=== PATIENT | female | born 1960 | race Caucasian/White ===

== ENCOUNTER → 2020-08-07 10:01 | Outpatient (CLI) | payer BC, OTHER, SELFPAY ==
--- NOTE | ~2020-08-07 | DEXA_ITS ---
Bone Density Report Name: Ebony Bynum Age: 59 Sex: Female Ethnicity: White Date of : 1960 Indication: postmenopausal; screening for osteoporosis; parental hip fracture; prior fracture; Referring Provider: LIBERTY MARIE Study: Bone densitometry was performed. Exam Date: August 07, 2020 Accession number: [id number] Bone Density: Region BMD T-score Z-score Classification AP Spine (L1-L4) 1.019 -0.3 1.3 Normal Femoral Neck (Left) 0.770 -0.7 0.7 Normal Total Hip (Left) 0.775 -1.4 -0.3 Osteopenia Femoral Neck (Right) 0.764 -0.8 0.6 Normal Total Hip (Right) 0.810 -1.1 0.0 Osteopenia Total Hip Mean 0.793 -1.3 -0.2 Osteopenia World Health Organization criteria for BMD impression classify patients as: Normal (T-score at or above -1.0), Osteopenia (T-score between -1.0 and -2.5), or Osteoporosis (T-score at or below -2.5). 10-year Fracture Risk(1): Major Osteoporotic Fracture 23% Hip Fracture 0.7% Reported Risk Factors: [place] (), Neck BMD=0.764, BMI=23.6, previous fracture, parental fracture (1) FRAX(R) Version 3.08. Fracture probability calculated for an untreated patient. Fracture probability may be lower if the patient has received treatment. Previous Exams: Region Exam Age BMD T-score BMD Change BMD Change Date g/cm2 vs Baseline vs Previous AP Spine(L1-L4) 08/07/2020 59 1.019 -0.3 -0.064* -0.028* 06/07/2014 53 1.046 0.0 -0.037* -0.037* 09/24/2011 50 1.083 0.3 Total Hip(Left) 08/07/2020 59 0.775 -1.4 -0.118* -0.062* 02/12/2018 57 0.837 -0.9 -0.056* -0.024 06/07/2014 53 0.861 -0.7 -0.032* -0.032* 09/24/2011 50 0.893 -0.4 Total Hip(Right) 08/07/2020 59 0.810 -1.1 -0.076* -0.056* 02/12/2018 57 0.866 -0.6 -0.020 0.013 06/07/2014 53 0.853 -0.7 -0.033* -0.033* 09/24/2011 50 0.887 -0.5 *Denotes significance at 95% confidence level, LSC for AP Spine = 0.022 g/cm2, LSC for Total Hip = 0.027 g/cm2 Clinical Information Provided by Patient: Has had a low trauma fracture Parent has had a hip fracture Has used the following medications: Vitamin D Patient maximum height was 67.5 Menopause Age: 49 Drinks caffeinated beverages Onset of menses at age 13 Number of children 2 Impression: The patient has low bone mass, based on the Left Total
--- NOTE | ~2020-08-07 | MM_ITS ---
EXAMINATION: MM screening wilberto BI w dinora HISTORY: Screening mammogram, family history of breast cancer in her sister. TECHNIQUE: Craniocaudal and mediolateral oblique 3-D tomosynthesis images were obtained and synthetic 2-D images were generated. CAD analysis was submitted and interpreted. COMPARISON: 06/29/2018, 06/09/2017, 02/26/2016 BREAST PARENCHYMAL COMPOSITION: The breasts are heterogeneously dense, which may obscure small masses . FINDINGS: There is no evidence of suspicious mass, calcification, or architectural distortion to sugg est malignancy in either breast. There has been no suspicious interval change. IMPRESSION: 1. No mammographic evidence of malignancy. 2. Recommend routine screening mammography in one year. BI-RADS Category 1: Negative Reviewed, dictated and finalized at location A.
== END ==
PROVIDERS: PCP Family Medicine; Visit Provider Family Medicine
DX: Z12.31 Encounter for screening mammogram for malignant neoplasm of breast (principal); Z13.820 Encounter for screening for osteoporosis; M85.852 Other specified disorders of bone density and structure, left thigh; M85.851 Other specified disorders of bone density and structure, right thigh
CPT/HCPCS: 77063; 77067; 77080

== ENCOUNTER → 2021-08-27 12:10 | Outpatient (CLI) | payer BC, OTHER, SELFPAY ==
--- NOTE | ~2021-08-27 | MM_ITS ---
EXAMINATION: MM screening wilberto BI w dinora HISTORY: Screening mammogram TECHNIQUE: Craniocaudal and mediolateral oblique 3-D tomosynthesis images were obtained and synthetic 2-D images were generated. Bilateral rotated lateral CC views. CAD analysis was submitted and interp reted. COMPARISON: 08/07/2020, 06/29/2018, 06/09/2017 bilateral screening mammogram examinations BREAST PARENCHYMAL COMPOSITION: The breasts are heterogeneously dense, which may obscure small masses . FINDINGS: There is no evidence of suspicious mass, calcification, or architectural distortion to sugg est malignancy in either breast. There has been no suspicious interval change. IMPRESSION: 1. No mammographic evidence of malignancy. 2. Recommend routine screening mammography in one year. BI-RADS Category 1: Negative gas is seen lump behind the nipple there is obvious epiglottic right she ath is obtained with Reviewed, dictated and finalized at location A. IMPRESSION: 1. No mammographic evidence of malignancy. 2. Recommend routine screening mammography in one year. BI-RADS Category 1: Negative gas is seen lump behind the nipple there is obviou s epiglottic right sheath is obtained with
== END ==
PROVIDERS: PCP Family Medicine; Visit Provider Family Medicine
DX: Z12.31 Encounter for screening mammogram for malignant neoplasm of breast (principal)
CPT/HCPCS: 77063; 77067

== ENCOUNTER 2022-07-15 00:18 | Day surgery (SDC) | payer BC, OTHER, SELFPAY ==
[2022-07-01 14:26] VITALS: BMI 23.6
[2022-07-15 11:00] VITALS: BP 103/57; PULSE 82; RESP 16; TEMP 36.1; O2SAT 98; BMI 23.2
--- NOTE | 2022-07-15 11:23 | PM.HPGS ---
History of Present Illness History of Present Illness Consent: Risks, benefits, and alternatives have been discussed and questions answered. Patient agrees to proceed with procedure. Chief complaint: neoplasm screening Narrative: Ebony Bynum is a 61 year old female Presents for screening colonoscopy. Patient's current weight appetite and bowel movements are normal. Patient denies abdominal pain. She has had no bleeding. Family history is noncontributory. Patient has previous colonoscopy 10 years ago was unremarkable. Review of Systems Review of Systems: Review of systems noncontributory. [facility] Past Medical History Medical History Broken wrist (~02/28/20) Cellulitis of fourth toe of right foot Chronic pain of left ankle Pain in right knee Pelvis fracture (~2007) Sprain of left ankle Surgical History Surgical History S/P knee surgery [place] teeth removed Family History Family History Father History of blood clots Grandparent Breast cancer Mother Hypertension Cerebrovascular accident Sibling Breast cancer Social History Social History Smoking status: Never smoker Alcohol intake: current Alcohol use details: occasional wine Substance use: never Substance use type: does not use Lack of Transportation: No Lack of Food: Never True Current Housing: I Have Housing Concerned About Future Housing: No Difficulty Paying Gas/Electric Bills: No Difficulty Paying for Meds: No Currently Unemployed: No Education: High School Diploma/GED Difficulty w/ Childcare or Family Care: No Living arrangements: with family Spiritual care concerns: No Meds Home Medications and Allergies Home Medications Medication Instructions Recorded Confirmed Type omega-3 fatty acids-fish oil 340 1 cap PO DAILY 08/06/21 07/15/22 History mg-1,000 mg capsule (Fish Oil) cholecalciferol (vitamin D3) 50 50 mcg PO DAILY 07/01/22 07/15/22 History mcg (2,000 unit) tablet (Vitamin D3) Allergies Allergy/AdvReac Type Severity Reaction Status Date / Time No Known Allergies Allergy Verified 07/15/22 11:09 Vital Signs Vital Signs - 24 hr 04/18/23 11:00 Temperature 96.9 F L Pulse Rate 82 Respiratory Rate 16 Blood Pressure 103/57 L Pulse Oximetry 98 Oxygen Delivery Room Air Exam Narrative: Physical exam reveals patient to be alert. Vital signs stable. HEENT exam is unremarkable. Patient is anicteric. Lungs are clear to auscultation and percussion. Heart is without murmur or extra sounds. Abdomen bowel sounds are present soft nontender with no organomegaly. Digital external rectal exam is normal. Assessment and Plan Assessment and plan (1) Encounter for screening colonoscopy: Code(s): Z12.11 - Encounter for screening for malignant neoplasm of colon Status: Acute Assessment and Plan: Patient presents today for screening colonoscopy. She appears to be at average risk for colon polyps. Further recommendations may be given after endoscopy.
[2022-07-15] MEDS: LACTATED RINGERS 1,000 ML 150 ML IV CONT (11:29)
--- NOTE | 2022-07-15 11:30 | P.PNAN_ITS ---
Anes - Initial Pre Proc Eval Procedure: Operation Date: 07/15/22 12:30 Proposed Procedures p Screening Colonoscopy - Chandler Farah MD Date/Time: 07/15/22 11:30 Surgeon: Chandler Farah MD Pre Op Diagnosis: neoplasm screening Patient Data Age: 61 Gender: F Height: 1.7 m Weight: 67.2 kg Last Vital Signs Temp 36.1 C L 07/15/22 11:00 Pulse 82 07/15/22 11:00 Resp 16 07/15/22 11:00 BP 103/57 L 07/15/22 11:00 Pulse Ox 98 07/15/22 11:00 O2 Del Method Room Air 07/15/22 11:00 Allergies Allergy/AdvReac Type Severity Reaction Status Date / Time No Known Allergies Allergy Verified 07/15/22 11:09 Home Medications Medication Instructions Recorded Confirmed Type omega-3 fatty acids-fish oil 340 1 cap PO DAILY 08/06/21 07/15/22 History mg-1,000 mg capsule (Fish Oil) cholecalciferol (vitamin D3) 50 50 mcg PO DAILY 07/01/22 07/15/22 History mcg (2,000 unit) tablet (Vitamin D3) Patient hx anesthesia problems: none Family hx anesthesia problems: none Results Review: All pre-operative results and documents have been reviewed as part of the pre- operative evaluation. [facility] Past Medical History Medical History Broken wrist (~02/28/20) Cellulitis of fourth toe of right foot Chronic pain of left ankle Pain in right knee Pelvis fracture (~2007) Sprain of left ankle Surgical History Surgical History S/P knee surgery [place] teeth removed Family History Family History Father History of blood clots Grandparent Breast cancer Mother Hypertension Cerebrovascular accident Sibling Breast cancer Social History Social History Smoking status: Never smoker Alcohol intake: current Alcohol use details: occasional wine Substance use: never Substance use type: does not use Lack of Transportation: No Lack of Food: Never True Current Housing: I Have Housing Concerned About Future Housing: No Difficulty Paying Gas/Electric Bills: No Difficulty Paying for Meds: No Currently Unemployed: No Education: High School Diploma/GED Difficulty w/ Childcare or Family Care: No Living arrangements: with family Spiritual care concerns: No Anes - Eval Final PreProcedure Day of Procedure 07/15/22 11:30 Patient weight: normal Heart: regular rate and rhythm Lungs: clear to auscultation and normal air movement Airway: Mallampati scale class II Neurological: alert and oriented Last oral intake: >/= 8 hours ASA classification: II Emergent: no Anesthetic plan: proceed Anesthesia type and monitoring: general GIVS and standard monitoring Results Review: All pre-operative results and documents have been reviewed as part of the pre- operative evaluation. Informed Consent: The patient's anesthetic plan and its attendant risks and benefits were discussed with the patient/family/POA. Questions were solicited and answers provided to the satisfaction of the patient/family/POA.
[2022-07-15 12:30] VITALS: BP 88/61; PULSE 78; RESP 14; O2SAT 98
[2022-07-15 12:39] VITALS: BP 87/57; PULSE 74; RESP 16; O2SAT 98
[2022-07-15 12:49] VITALS: BP 114/71; PULSE 71; RESP 18; O2SAT 98
== END 2022-07-15 12:58 | disposition home or self-care (01) ==
PROVIDERS: PCP Family Medicine; Visit Provider Internal Medicine Gastroenterology
PROC: 0DJD8ZZ Inspection of Lower Intestinal Tract, Via Natural or Artificial Opening Endoscopic (ICD-10-PCS; CPT 45378; principal; 2022-07-15 12:30)
DX: Z12.11 Encounter for screening for malignant neoplasm of colon (principal); K64.8 Other hemorrhoids
CPT/HCPCS: 45378; J2704; J7120

== ENCOUNTER → 2022-09-08 11:50 | Outpatient (CLI) | payer BC, OTHER, SELFPAY ==
--- NOTE | ~2022-09-08 | DEXA_ITS ---
Bone Density Report Name: FLIP AGUILAR Age: 61 Sex: Female Ethnicity: White Date of : 1960 Indication: osteopenia; parental hip fracture; prior fracture; postmenopausal Referring Provider: LIBERTY MARIE Study: Bone densitometry was performed. Exam Date: September 08, 2022 Accession number: [id number] Bone Density: Region BMD T-score Z-score Classification AP Spine (L1-L4) 1.005 -0.4 1.3 Normal Femoral Neck (Left) 0.738 -1.0 0.5 Normal Total Hip (Left) 0.763 -1.5 -0.3 Osteopenia Femoral Neck (Right) 0.754 -0.9 0.6 Normal Total Hip (Right) 0.821 -1.0 0.2 Normal Total Hip Mean 0.792 -1.3 -0.1 Osteopenia World Health Organization criteria for BMD impression classify patients as: Normal (T-score at or above -1.0), Osteopenia (T-score between -1.0 and -2.5), or Osteoporosis (T-score at or below -2.5). 10-year Fracture Risk(1): Major Osteoporotic Fracture 24% Hip Fracture 0.9% Reported Risk Factors: [place] (), Neck BMD=0.738, BMI=23.4, previous fracture, parental fracture (1) FRAX(R) Version 3.08. Fracture probability calculated for an untreated patient. Fracture probability may be lower if the patient has received treatment. Previous Exams: Region Exam Age BMD T-score BMD Change BMD Change Date g/cm2 vs Baseline vs Previous AP Spine(L1-L4) 09/08/2022 61 1.005 -0.4 -0.078* -0.014 08/07/2020 59 1.019 -0.3 -0.064* -0.028* 06/07/2014 53 1.046 0.0 -0.037* -0.037* 09/24/2011 50 1.083 0.3 Total Hip(Left) 09/08/2022 61 0.763 -1.5 -0.130* -0.011 08/07/2020 59 0.775 -1.4 -0.118* -0.062* 02/12/2018 57 0.837 -0.9 -0.056* -0.024 06/07/2014 53 0.861 -0.7 -0.032* -0.032* 09/24/2011 50 0.893 -0.4 Total Hip(Right) 09/08/2022 61 0.821 -1.0 -0.066* 0.011 08/07/2020 59 0.810 -1.1 -0.076* -0.056* 02/12/2018 57 0.866 -0.6 -0.020 0.013 06/07/2014 53 0.853 -0.7 -0.033* -0.033* 09/24/2011 50 0.887 -0.5 *Denotes significance at 95% confidence level, LSC for AP Spine = 0.022 g/cm2, LSC for Total Hip = 0.027 g/cm2 Clinical Information Provided by Patient: Has had a low trauma fracture Parent has had a hip fracture Has used the following medications: Vitamin D Patient maximum height was 67.5 Menopause Age: 49 Drinks caffeinated beverages Onset of menses at
--- NOTE | ~2022-09-08 | MM_ITS ---
EXAMINATION: MM screening wilberto BI w dinora HISTORY: Screening mammogram TECHNIQUE: Craniocaudal and mediolateral oblique 3-D tomosynthesis images were obtained and synthetic 2-D images were generated. CAD analysis was submitted and interpreted. COMPARISON: 08/27/2021, 08/07/2020, 06/29/2018 bilateral screening mammogram examinations BREAST PARENCHYMAL COMPOSITION: There is heterogeneously dense breast tissue, which may obscure small masses. FINDINGS: Stable circumscribed opacity in the upper outer left breast and posterior lower outer left breast, likely benign lymph nodes. There is no evidence of suspicious mass, calcification, or archite ctural distortion to suggest malignancy in either breast. There has been no suspicious interval sotomayor e. IMPRESSION: 1. No mammographic evidence of malignancy. 2. Recommend routine screening mammography in one year. BI-RADS Category 2: Benign finding(s). Reviewed, dictated and finalized at location A.
== END ==
PROVIDERS: PCP Family Medicine; Visit Provider Family Medicine
DX: Z12.31 Encounter for screening mammogram for malignant neoplasm of breast (principal); Z78.0 Asymptomatic menopausal state; M85.852 Other specified disorders of bone density and structure, left thigh
CPT/HCPCS: 77063; 77067; 77080

== ENCOUNTER 2023-09-06 08:02 | Emergency (ER) | payer BC, OTHER, SELFPAY ==
[2023-09-06 08:12] VITALS: BP 121/74; PULSE 75; RESP 16; TEMP 37.1; O2SAT 100
--- NOTE | 2023-09-06 08:20 | ED.EAR ---
HPI - Ear Problem General Chief complaint: Ear Stated complaint: Right Ear Pain/Sore Throat Time Seen by Provider: 09/06/23 08:08 Source: patient, RN notes reviewed and old records reviewed Mode of arrival: ambulatory Limitations: no limitations History of Present Illness HPI Narrative: 62-year-old female to [facility] for complaint of right ear pain for 4 days That is worse when she lays down. Patient has attempted to treat at home with Zyrtec and Aleve with some relief. Patient currently endorsing pain /10. Patient denies fever, cough, sore throat, nasal congestion, otic discharge, changes in hearing, allergies, chest pain, shortness of breath. Respirations even and nonlabored. Patient able to speak in complete sentences. No signs of acute distress. Related Data Allergies Allergy/AdvReac Type Severity Reaction Status Date / Time No Known Allergies Allergy Verified 06/18/23 09:26 Review of Systems Review of Systems: All systems reviewed & are unremarkable except as noted in HPI and below Constitutional: Constitutional: Reports as per HPI, Denies fever(s) and Denies headache(s) Eyes: Eyes: Reports no additional eye complaints ENT: Reports as per HPI, Reports otalgia ( Right), Denies nasal congestion and Denies nasal discharge Cardiovascular: Cardiovascular: Reports no additional cardiovascular complaints, Denies chest pain and Denies dyspnea Respiratory: Respiratory: Reports no additional respiratory complaints, Denies cough and Denies dyspnea Musculoskeletal: Musculoskeletal: Reports no additional musculoskeletal complaints Neurologic: Reports system reviewed and no additional complaints, except as documented Psychiatric: Psychiatric: Reports no additional psychiatric complaints [facility] Past Medical History Medical History Broken wrist (~02/28/20) Cellulitis of fourth toe of right foot Chronic pain of left ankle Pain in right knee Pelvis fracture (~2007) Sprain of left ankle Surgical History Surgical History S/P knee surgery [place] teeth removed Family History Family History Father History of blood clots Grandparent Breast cancer Mother Hypertension Cerebrovascular accident Sibling Breast cancer Social History Social History Smoking status: Never smoker Alcohol intake: current Drinks per week: 3 Alcohol use details: occasional wine Substance use: never Substance use type: does not use Do You Feel Safe in your Home?: Yes Lack of Transportation: No Lack of Food: Never True Current Housing: I Have Housing Concerned About Future Housing: No Difficulty Paying Gas/Electric Bills: No Difficulty Paying for Meds: No Currently Unemployed: No Education: High School Diploma/GED Difficulty w/ Childcare or Family Care: No Living arrangements: with family Spiritual care concerns: No Comments At the time of my signature, I reviewed and agree with the nursing past medical, surgical, social, and family history. There is no relevant family history pertinent to the patient complaint. Exam Const: General: cooperative, healthy appearing, no acute distress, alert, uncomfortable and well nourished Nutritional Appearance: well nourished Orientation/consciousness: patient oriented x3 Limitations: no limitations HENMT: Head: normal to inspection Ears: external ears normal and TM abnormal dull on the right, with fluid behind the TM on the right and not mobile on the right Face/Nose/Sinus: Normal external nose present, Normal nares present, normal facial exam, No erythema and No edema Face and sinus: normal facial exam, no erythema and no edema Mouth: Yes Normal oral and palatal mucosa present Throat: posterior oropharynx abnormal an
== END 2023-09-06 08:24 | disposition home or self-care (01) ==
PROVIDERS: Emergency Provider Nurse Practitioner Family; PCP Family Medicine
DX: H66.91 Otitis media, unspecified, right ear (principal)
CPT/HCPCS: 99213; G0463

== ENCOUNTER 2023-12-05 07:21 | Outpatient (CLI) | payer MEDICARE, OTHER, SELFPAY ==
--- NOTE | ~2023-12-05 | US_ITS ---
EXAMINATION: US right upper quadrant DATE: 12/05/2023 07:46 INDICATION: Abnormal liver function tests. TECHNIQUE: Multiple grayscale and Doppler ultrasound images of the abdomen were obtained. COMPARISON: None FINDINGS: The visualized portions of the head, body, and tail of the pancreas are normal. The liver d emonstrates coarsened echotexture and surface nodularity, consistent with cirrhosis. There is normal flow in main portal vein. The gallbladder is normal in size. No gallstones or gallbladder wall thicke juan pablo. There is no sonographic Rothman's sign. The common duct is normal and measures 3 mm. IMPRESSION: 1. Cirrhosis of the liver. Reviewed, dictated and finalized at location A. IMPRESSION: 1. Cirrhosis of the liver.
== END 2023-12-05 07:22 | disposition home or self-care (01) ==
LOC: MICIMG 07:23
PROVIDERS: PCP Chiropractor; Visit Provider Chiropractor
DX: R74.8 Abnormal levels of other serum enzymes (principal); K74.60 Unspecified cirrhosis of liver
CPT/HCPCS: 76705

== ENCOUNTER 2025-03-15 08:51 | Outpatient (CLI) | payer MEDICARE, OTHER, SELFPAY ==
--- NOTE | ~2025-03-15 | US_ITS ---
EXAMINATION: US pelvic complete w TV, 03/15/2025 9:15 RECORDING ENGINEER HISTORY: N95.0 - Postmenopausal bleeding Comparison: None Technique: Simmons-scale and color Doppler images were obtained. Findings: Uterus: Uterus anteverted 8.5 x 4.3 x 3.4 cm. . Endometrium 8 mm. Endometrium demonstrates a heterogeneous appearance. Right Ovary:Right ovary 2.7 x 1.4 x 1.8 cm, no adnexal mass, normal flow. Left Ovary: Left ovary not identified. Free Fluid: None Impression: 1. Abnormally thickened endometrium. Tissue sampling recommended Reviewed, dictated and finalized at location P. RDING ENGINEER Impression: 1. Abnormally thickened endometrium. Tissue sampling recommended
--- NOTE | ~2025-03-15 | DEXA_ITS ---
Bone Density Report Name: FLIP AGUILAR Age: 64 Sex: Female Ethnicity: White Date of : 1960 Indication: postmenopausal; screening for osteoporosis; Referring Provider: Bayron Sandoval Study: Bone densitometry was performed. Exam Date: March 15, 2025 Accession number: [id number] Bone Density: Region BMD T-score Z-score Classification AP Spine(L1-L4) 1.039 -0.1 1.8 Normal Femoral Neck (Left) 0.728 -1.1 0.5 Osteopenia Total Hip (Left) 0.786 -1.3 0.0 Osteopenia Femoral Neck (Right) 0.729 -1.1 0.5 Osteopenia Total Hip (Right) 0.903 -0.3 1.0 Normal Femoral Neck Mean 0.728 -1.1 0.5 Osteopenia Total Hip Mean 0.845 -0.8 0.5 Normal World Health Organization criteria for BMD impression classify patients as: Normal (T-score at or above -1.0), Osteopenia (T-score between -1.0 and -2.5), or Osteoporosis (T-score at or below -2.5). 10-year Fracture Risk(1): Major Osteoporotic Fracture 8.2% Hip Fracture 0.7% Reported Risk Factors: [place] (), Neck BMD=0.728, BMI=23.5 (1) FRAX(R) Version 3.08. Fracture probability calculated for an untreated patient. Fracture probability may be lower if the patient has received treatment. Clinical Information Provided by Patient: Has used the following medications: Vitamin D, Multivitamin Patient maximum height was 67 Menopause Age: 50 Does not regularly consume dairy products Drinks caffeinated beverages Onset of menses at age 13 Number of children 2 Impression: The patient has low bone mass, based on the Left Total Hip T-score. Discussion: BONE DENSITY IS LOW AT ONE OR MORE SKELETAL SITES. This patient's lowest T-score is low at one or more skeletal sites. It meets the World Health Organization's (WHO) criteria for ?low bone mass? (T-score between -1.0 and -2.5). The patient's 10-year risk of fracture as calculated by FRAX is less than the threshold where pharmacological therapy is recommended by the National Osteoporosis Foundation (NOF). However, all treatment decisions require clinical judgment and consideration of individual patient factors, including patient preferences, comorbidities, previous drug use, risk factors not captured in the FRAX model (e.g., frailty, falls, vitamin D deficiency, increased bone turnover, interval significant decline in bone density) and possible under or overestimation of fracture risk by FRAX. The patient should follow a healthful lifestyle (good nutrition with adequate calcium and vitamin D, and appropriate weight-bearing exercise). Follow-Up: Consider repeating this study in 2 to 3 years to reassess this patient's status, or sooner if there is some new clinical indication. Reported by: BART on 03/15/2025 9:19:00 AM. Reviewed, dictated and finalized at location A.
--- OUTSIDE RECORDS SUMMARY | 2025-03-15 09:33 | XMS_ITS | Clinical Summary ---
Author Organization [facility] [employer] Address [address] [place] [address] Care Team Providers Care [facility] Quality Control Technician Name Role Phone Radha Montes MD Primary Care Provider [phone] Source Comments [facility] [employer],non-owned Affiliates and Associated Physician Practices is amultiple site organization consisting of ambulatory clinics and hospital sitesin [place], [place], [place] and [place]. This disclosure is being madepursuant to the Care Everywhere program and may not contain all information available regarding this patient. Last updated 17.[facility] [employer] Allergies No known active allergies Medications * Be aware that medications may not be up to date on this document. Alwaysverify current medications with the patient. fluticasone propionate (FLONASE) 50 MCG/ACT nasal spray [place] 2 Sprays into each nostril once daily 1 Bottle 0 01/03/2016 Active Estrogens Conjugated (PREMARIN PO) Active multivitamin daily (THERAGRAN) tablet Take 1 Tab by mouth daily with food Active Cholecalciferol (VITAMIN D PO) Activ e triamcinolone acetonide (KENALOG) 0.1 % creamIndication s:Allergic contact dermatitis due to plants, except food Apply to affected area 2 times daily 15 g 1 06/25/2016 Active predniSONE (DELTASONE) 20 MG tabletIndicatio ns:Allergic contact dermatitis due to plants, except food TAKE 60MG FOR 5 DAYS, 40MG FOR 5 DAYS, AND 20MG FOR 5 DAYS 30 Tab 06/25/2016 Active Social History Tobacco Use Types Packs/Day Years Used Date Smoking Tobacco: Never Smokeless Tobacco: Never Comments No Sex and Gender Information Value Date Recorded Sex Assigned at Not on file Legal Sex Female 6:53 AM CDT Gender Identity Not on file Sexual Orientation Not on file Last Filed Vital Signs Vital Sign Reading Time Taken Comments Blood Pressure 120/80 06/25/2016 6:33 PM CDT Pulse 72 06/25/2016 6:33 PM CDT Temperature 36.8 C (98.2 F) 06/25/2016 6:33 PM CDT Respiratory Rate 16 06/25/2016 6:33 PM CDT Oxygen Saturation 99% 06/25/2016 6:33 PM CDT Inhaled Oxygen Concentration - - Weight 68 kg (150 lb) 06/25/2016 6:33 PM CDT Height 170.2 cm (5' 7) 06/25/2016 6:33 PM CDT Body Mass Index 23.49 06/25/2016 6:33 PM CDT Plan of Treatment Health Maintenance Due Date Last Done Comments BONE DENSITY TESTING 1960 COLOGUARD (AGES 45-75) - COL ON CA SCREENING 1960 COLON MONITORING 1960 COLONOSCOPY - COLON CA SCREENING 1960 CT COLONOGRAPHY - COLON CA SCREENING 1960 Colorectal Cancer Screening 1960 FIT - COLON CA SCREENING 1960 FLEX SIG - COLON CA SCREENING 1960 LIPID TESTING 1960 MAMMOGRAM 1960 HEPATITIS C SCREENING 10/22/1976 DTAP/TDAP/TD VACCINES (1 - Tdap) 1977 PNEUMOCOCCAL VACCINE 50+ (1 of 1 - PCV) 2008 ZOSTER VACCINE (1 of 2) 2008 DEPRESSION SCREENING 03/30/2024 COVID-19 VACCINE ( - 2024-2 6 season) 2024 INFLUENZA VACCINE (#1) 2024 Respiratory Syncytial Virus (RSV) Vaccine Pt: or over 60 yrs (1 - 1-dose 75+ series) 2033 HEPATITIS B VACCINE Aged Out No longe r eligible based on patient's age to complete this topic HIB VACCINE Aged Out No longer eligi ble based on patient's age to complete this topic HPV VACCINE Aged Out No longer eligi ble based on patient's age to complete this topic MENINGOCOCCAL (Group B) VACC INE SHARED DECISION-MAKING Aged Out No longer eligibl e based on patient's age to complete this topic MENINGOCOCCAL GROUPS A/C/Y/W VACCINE Aged Out No longer eligible b ased on patient's age to complete this topic Insurance ANTHEM Care Teams [facility] Quality Control Technician Relationship Specialty Start Date End Date Radha Montes MD [address] [place] [id number] PCP - General Family Medicine 01/03/16
== END 2025-03-15 08:52 | disposition home or self-care (01) ==
LOC: CHSIMG 08:56
PROVIDERS: PCP Internal Medicine; Visit Provider Obstetrics & Gynecology
DX: Z78.0 Asymptomatic menopausal state (principal); N95.0 Postmenopausal bleeding; M85.89 Other specified disorders of bone density and structure, multiple sites; R93.89 Abnormal findings on diagnostic imaging of other specified body structures
CPT/HCPCS: 76830; 76856; 77080